=== PATIENT | female | born 1990 | race Caucasian/White ===

== ENCOUNTER 2017-12-29 12:01 | Inpatient (IN) | payer OTHER ==
[2017-12-29 13:11] LABS: BASO % 0.9 % (0.0-1.0); EOS # 0.2 10^3/uL (0.0-0.50); EOS % 3.6 % (0.0-3.0); HEMATOCRIT 40.1 % (36.0-47.0); HEMOGLOBIN 14.5 g/dl (12.0-15.5); IMMATURE GRANULOCYTE % 0.2 % (0-3.0); LYMPH # 1.8 10^3/uL (1.5-6.5); MEAN CORPUSCULAR HEMOGLOBIN 33.6 pg (27.0-33.0); MEAN CORPUSCULAR HGB CONC 36.2 g/dl (32.0-36.5); MEAN CORPUSCULAR VOLUME 92.8 fl (80.0-96.0); MONO # 0.5 10^3/uL (0.0-0.8); MONO % 9.6 % (0.0-5.0); NEUTROPHILS # 2.2 10^3/uL (1.8-7.7); NEUTROPHILS % 47.7 % (36.0-66.0); PLATELET COUNT, AUTOMATED 391 10^3/uL (150-450); RED BLOOD COUNT 4.32 10^6/uL (4.00-5.40); WHITE BLOOD COUNT 4.7 10^3/uL (4.0-10.0)
[2017-12-29 13:40] LABS: ALBUMIN 4.5 GM/DL (3.2-5.2); ALBUMIN/GLOBULIN RATIO 1.25 (1.00-1.93); ALKALINE PHOSPHATASE 59 U/L (45-117); ALT/SGPT 21 U/L (12-78); ANION GAP 18 MEQ/L (8-16); AST/SGOT 22 U/L (7-37); BILIRUBIN,DIRECT 0.3 MG/DL (0.0-0.2); BILIRUBIN,TOTAL 1.3 MG/DL (0.2-1.0); BLOOD UREA NITROGEN 19 MG/DL (7-18); CALCIUM LEVEL 9.9 MG/DL (8.5-10.1); CARBON DIOXIDE LEVEL 28 MEQ/L (21-32); CHLORIDE LEVEL 88 MEQ/L (98-107); CPK CREATINE PHOSPHOKINASE 104 U/L (26-192); CREATININE FOR GFR 1.11 MG/DL (0.55-1.30); GLOMERULAR FILTRATION RATE > 60.0 (>60); GLUCOSE, FASTING 89 MG/DL (70-100); MB/CK RELATIVE INDEX 1.44 (< OR =4); NT-PRO BNP 64 PG/ML (<125); POTASSIUM SERUM 2.3 MEQ/L (3.5-5.1); SODIUM LEVEL 134 MEQ/L (136-145); TOTAL PROTEIN 8.1 GM/DL (6.4-8.2); TROPONIN I < 0.02 NG/ML (< 0.10)
[2017-12-29] MEDS: KCL 10MEQ/100ML SWI (KRUN) 10 MEQ in APPROPRIATE DILUENT 1 EA IV ×4 (13:53→18:17)
[2017-12-29] MEDS: POTASSIUM CHLORIDE 10 MEQ SR TABLET PO ×2 (13:54→17:17)
[2017-12-29] MEDS: NS 1,000 ML IV ×3 (14:09→21:38)
[2017-12-29 15:51] LABS: CONTROL LINE HCG INT CTR LINE PRESENT; HCG, SERUM QUALITATIVE NEGATIVE (NEGATIVE)
[2017-12-29] MEDS: HEPARIN SOD (PORCINE) 5000 UNITS/ML VIAL SC ×2 (16:15→21:38)
[2017-12-29 18:24] LABS: OSMOLALITY SERUM 283 MOSM/KG (275-295)
[2017-12-29 18:33] LABS: ANION GAP 6 MEQ/L (8-16); BLOOD UREA NITROGEN 16 MG/DL (7-18); CALCIUM LEVEL 8.5 MG/DL (8.5-10.1); CARBON DIOXIDE LEVEL 33 MEQ/L (21-32); CHLORIDE LEVEL 94 MEQ/L (98-107); CREATININE FOR GFR 0.89 MG/DL (0.55-1.30); GLOMERULAR FILTRATION RATE > 60.0 (>60); GLUCOSE, FASTING 125 MG/DL (70-100); POTASSIUM SERUM 4.3 MEQ/L (3.5-5.1); SODIUM LEVEL 133 MEQ/L (136-145)
[2017-12-30 00:41] LABS: ANION GAP 5 MEQ/L (8-16); BLOOD UREA NITROGEN 16 MG/DL (7-18); CALCIUM LEVEL 7.8 MG/DL (8.5-10.1); CARBON DIOXIDE LEVEL 31 MEQ/L (21-32); CHLORIDE LEVEL 104 MEQ/L (98-107); CREATININE FOR GFR 0.99 MG/DL (0.55-1.30); GLOMERULAR FILTRATION RATE > 60.0 (>60); GLUCOSE, FASTING 92 MG/DL (70-100); POTASSIUM SERUM 3.8 MEQ/L (3.5-5.1); SODIUM LEVEL 140 MEQ/L (136-145)
[2017-12-30] MEDS: NS 1,000 ML IV (01:35)
[2017-12-30 06:00] LABS: MEAN CORPUSCULAR HEMOGLOBIN 33.4 pg (27.0-33.0); MEAN CORPUSCULAR HGB CONC 33.8 g/dl (32.0-36.5); RED BLOOD COUNT 2.93 10^6/uL (4.00-5.40); RED CELL DISTRIBUTION WIDTH 12.7 % (11.5-14.5); WHITE BLOOD COUNT 3.2 10^3/uL (4.0-10.0)
[2017-12-30 06:14] LABS: HEMOGLOBIN 9.8 g/dl (12.0-15.5); PLATELET COUNT, AUTOMATED 213 10^3/uL (150-450)
[2017-12-30 06:28] LABS: ALBUMIN 2.6 GM/DL (3.2-5.2); ALBUMIN/GLOBULIN RATIO 1.04 (1.00-1.93); ALKALINE PHOSPHATASE 34 U/L (45-117); ALT/SGPT 16 U/L (12-78); ANION GAP 7 MEQ/L (8-16); AST/SGOT 14 U/L (7-37); BILIRUBIN,DIRECT 0.3 MG/DL (0.0-0.2); BILIRUBIN,TOTAL 0.8 MG/DL (0.2-1.0); BLOOD UREA NITROGEN 14 MG/DL (7-18); CALCIUM LEVEL 7.3 MG/DL (8.5-10.1); CARBON DIOXIDE LEVEL 27 MEQ/L (21-32); CHLORIDE LEVEL 107 MEQ/L (98-107); GLOMERULAR FILTRATION RATE > 60.0 (>60); GLUCOSE, FASTING 92 MG/DL (70-100); MAGNESIUM LEVEL 1.7 MG/DL (1.8-2.4); POTASSIUM SERUM 3.3 MEQ/L (3.5-5.1); SODIUM LEVEL 141 MEQ/L (136-145); TOTAL PROTEIN 5.1 GM/DL (6.4-8.2)
[2017-12-30] MEDS: HEPARIN SOD (PORCINE) 5000 UNITS/ML VIAL SC ×3 (06:47→20:43)
[2017-12-30] MEDS: KCL 40MEQ in NS 1000ML 1,000 ML IV ×3 (07:54→22:23)
[2017-12-30] MEDS: MAG SULF 1GM/100ML (MAG RUN) 1 GM in APPROPRIATE DILUENT 1 EA IV (07:54)
[2017-12-30] MEDS: POTASSIUM CHLORIDE 10 MEQ SR TABLET PO (07:54)
[2017-12-30 08:17] LABS: LACTIC ACID SEPSIS PROTOCOL 0.6 MMOL/L (0.4-2.0)
[2017-12-30 08:20] LABS: APPEARANCE, URINE CLEAR (CLEAR); BACTERIA, URINE AUTO NEGATIVE (NEGATIVE); BILIRUBIN, URINE AUTO NEGATIVE (NEGATIVE); BLOOD, URINE BLOOD NEGATIVE (NEGATIVE); COLOR, URINE YELLOW (YELLOW); GLUCOSE, URINE (UA) AUTO NEGATIVE (NEGATIVE); KETONE, URINE AUTO NEGATIVE (NEGATIVE); LEUKOCYTE ESTERASE, URINE AUTO NEGATIVE (NEGATIVE); NITRITE, URINE AUTO NEGATIVE (NEGATIVE); PROTEIN, URINE AUTO NEGATIVE (NEGATIVE); RBC, URINE AUTO 1 /HPF (0-3); SPECIFIC GRAVITY URINE AUTO 1.005 (1.002-1.035); SQUAMOUS EPITHELIAL CELL UR AU 1 /HPF (0-6); UROBILINOGEN, URINE AUTO 0.2 mg/dL (0.0-2.0); WBC, URINE AUTO 1 /HPF (0-3)
[2017-12-30 08:22] LABS: CPK CREATINE PHOSPHOKINASE 66 U/L (26-192); MB/CK RELATIVE INDEX 2.42 (< OR =4); TROPONIN I 0.05 NG/ML (< 0.10)
[2017-12-30 08:30] LABS: ABG HCO3 22.8 MEQ/L (22.0-26.0); ABG O2 SATURATION 98.6 % (95.0-99.0); ABG PARTIAL PRESSURE CO2 35.1 mmHg (35.0-45.0); ABG PARTIAL PRESSURE O2 139.9 mmHg (75.0-100.0); ABG STANDARD HCO3 23.6 MEQ/L (22.0-26.0); ABG TOTAL CO2 23.9 MEQ/L (22.0-29.0); ABG pH (ARTERIAL) 7.431 UNITS (7.350-7.450)
[2017-12-30 08:34] LABS: AMPHETAMINES LEVEL URINE NEGATIVE (NEGATIVE); BARBITURATES URINE NEGATIVE (NEGATIVE); BENZODIAZEPINES URINE NEGATIVE (NEGATIVE); CANNABINOIDS URINE POSITIVE (NEGATIVE); COCAINE METABOLITE URINE NEGATIVE (NEGATIVE); METHADONE URINE NEGATIVE (NEGATIVE); OPIATES URINE NEGATIVE (NEGATIVE); PHENCYCLIDINE URINE NEGATIVE (NEGATIVE)
[2017-12-30 08:35] LABS: CHLORIDE,RANDOM URINE < 10 MEQ/L; CREATININE,RANDOM URINE 60.2 MG/DL; POTASSIUM RANDOM URINE 14.6 MEQ/L; SODIUM,RANDOM URINE 22 MEQ/L
[2017-12-30 08:48] LABS: OSMOLALITY SERUM 286 MOSM/KG (275-295)
[2017-12-30 08:52] LABS: OSMOLALITY URINE 199 MOSM/KG (500-800)
[2017-12-30 10:14] LABS: CORTISOL BASELINE 13.4 UG/DL (4.3-22.4)
[2017-12-30 12:45] LABS: ANION GAP 5 MEQ/L (8-16); BLOOD UREA NITROGEN 10 MG/DL (7-18); CALCIUM LEVEL 7.7 MG/DL (8.5-10.1); CARBON DIOXIDE LEVEL 30 MEQ/L (21-32); CHLORIDE LEVEL 108 MEQ/L (98-107); CPK CREATINE PHOSPHOKINASE 83 U/L (26-192); CREATININE FOR GFR 0.71 MG/DL (0.55-1.30); GLOMERULAR FILTRATION RATE > 60.0 (>60); GLUCOSE, FASTING 71 MG/DL (70-100); MAGNESIUM LEVEL 2.4 MG/DL (1.8-2.4); MB/CK RELATIVE INDEX 1.81 (< OR =4); POTASSIUM SERUM 4.3 MEQ/L (3.5-5.1); SODIUM LEVEL 143 MEQ/L (136-145); TROPONIN I 0.07 NG/ML (< 0.10)
[2017-12-30 13:48] LABS: PHOSPHORUS LEVEL 2.3 MG/DL (2.5-4.9)
[2017-12-30] MEDS: NEUTRA-PHOS 1.25 GM PACKET PO ×2 (15:10→20:40)
[2017-12-30 15:42] LABS: CPK CREATINE PHOSPHOKINASE 103 U/L (26-192); MB/CK RELATIVE INDEX 2.04 (< OR =4); TROPONIN I 0.06 NG/ML (< 0.10)
[2017-12-30 17:08] LABS: TOTAL VOLUME, URINE 1250 ML
[2017-12-30 17:11] LABS: POTASSIUM URINE 37.5 MEQ/L
[2017-12-30 17:17] LABS: POTASSIUM 24 HOUR URINE 46.9 MEQ/24HR (25-125)
[2017-12-30 18:35] LABS: CPK CREATINE PHOSPHOKINASE 84 U/L (26-192); MB/CK RELATIVE INDEX 1.67 (< OR =4); TROPONIN I 0.05 NG/ML (< 0.10)
[2017-12-31] MEDS: HEPARIN SOD (PORCINE) 5000 UNITS/ML VIAL SC ×2 (05:30→13:43)
[2017-12-31] MEDS: KCL 40MEQ in NS 1000ML 1,000 ML IV (05:30)
[2017-12-31] MEDS: NEUTRA-PHOS 1.25 GM PACKET PO ×2 (08:20→16:16)
[2017-12-31] MEDS ORDERED: SLF 3 ML SYR IV (09:00)
[2017-12-31 09:02] LABS: HEMATOCRIT 36.3 % (36.0-47.0); HEMOGLOBIN 11.7 g/dl (12.0-15.5); MEAN CORPUSCULAR HEMOGLOBIN 34.1 pg (27.0-33.0); MEAN CORPUSCULAR HGB CONC 32.2 g/dl (32.0-36.5); MEAN CORPUSCULAR VOLUME 105.8 fl (80.0-96.0); PLATELET COUNT, AUTOMATED 230 10^3/uL (150-450); RED BLOOD COUNT 3.43 10^6/uL (4.00-5.40); RED CELL DISTRIBUTION WIDTH 12.8 % (11.5-14.5); WHITE BLOOD COUNT 2.9 10^3/uL (4.0-10.0)
[2017-12-31 09:29] LABS: ALBUMIN 3.2 GM/DL (3.2-5.2); ALBUMIN/GLOBULIN RATIO 1.19 (1.00-1.93); ALKALINE PHOSPHATASE 41 U/L (45-117); ALT/SGPT 18 U/L (12-78); ANION GAP 3 MEQ/L (8-16); AST/SGOT 13 U/L (7-37); BILIRUBIN,DIRECT 0.2 MG/DL (0.0-0.2); BILIRUBIN,TOTAL 0.5 MG/DL (0.2-1.0); BLOOD UREA NITROGEN 4 MG/DL (7-18); CALCIUM LEVEL 8.4 MG/DL (8.5-10.1); CARBON DIOXIDE LEVEL 26 MEQ/L (21-32); CHLORIDE LEVEL 112 MEQ/L (98-107); CREATININE FOR GFR 0.64 MG/DL (0.55-1.30); GLOMERULAR FILTRATION RATE > 60.0 (>60); GLUCOSE, FASTING 80 MG/DL (70-100); MAGNESIUM LEVEL 2.1 MG/DL (1.8-2.4); PHOSPHORUS LEVEL 2.5 MG/DL (2.5-4.9); POTASSIUM SERUM 5.1 MEQ/L (3.5-5.1); SODIUM LEVEL 141 MEQ/L (136-145); TOTAL PROTEIN 5.9 GM/DL (6.4-8.2)
[2017-12-31] MEDS: SLF 3 ML SYR IV (13:43)
[2018-01-01] MEDS ORDERED: FLUCONAZOLE 50MG TABLET PO (09:00)
[2018-01-02 00:06] LABS: Lyme Disease IgG/IgM Antibodie <0.91 ISR (0.00-0.90); Lyme Disease IgM Ab Quantitati <0.80 index (0.00-0.79)
[2018-01-03 00:08] LABS: ALDOSTERONE 1.7 ng/dL (0.0-30.0); RENIN ACTIVITY 1.679 ng/mL/hr (0.167-5.380)
== END 2017-12-31 17:22 | disposition home or self-care (01) | DRG 641 ==
LOC: M ED 12:01 → M ED INP 14:44 → M PCU 15:52
DX: E87.6 Hypokalemia (principal); F41.9 Anxiety disorder, unspecified; F32.9 Major depressive disorder, single episode, unspecified; F43.10 Post-traumatic stress disorder, unspecified; I95.89 Other hypotension

== ENCOUNTER → 2018-04-07 | Outpatient (REF) | payer OTHER ==
[~2018-04-07] MED LIST: FLUC150T PO; K-TA10TA PO; MAGN400C PO; POTA1TAB14 PO; [UNRECOGNIZED DRUG - CODE] XX
[2018-04-07 19:26] LABS: AMORPHOUS SEDIMENT SMALL (NEGATIVE); APPEARANCE, URINE HAZY (CLEAR); BACTERIA, URINE AUTO NEGATIVE (NEGATIVE); BILIRUBIN, URINE AUTO NEGATIVE (NEGATIVE); BLOOD, URINE BLOOD NEGATIVE (NEGATIVE); COLOR, URINE YELLOW (YELLOW); GLUCOSE, URINE (UA) AUTO NEGATIVE (NEGATIVE); KETONE, URINE AUTO NEGATIVE (NEGATIVE); LEUKOCYTE ESTERASE, URINE AUTO TRACE (NEGATIVE); MUCUS, URINE SMALL (NEGATIVE); NITRITE, URINE AUTO NEGATIVE (NEGATIVE); PROTEIN, URINE AUTO 3+ mg/dL (NEGATIVE); RBC, URINE AUTO 1 /HPF (0-3); SPECIFIC GRAVITY URINE AUTO 1.019 (1.002-1.035); SQUAMOUS EPITHELIAL CELL UR AU 6 /HPF (0-6); UROBILINOGEN, URINE AUTO 0.2 mg/dL (0.0-2.0); WBC, URINE AUTO 2 /HPF (0-3)
== END ==
LOC: M LAB REF 16:45
PROVIDERS: ATTEND Physician Assistant
DX: N39.0 Urinary tract infection, site not specified (principal)

== ENCOUNTER → 2018-04-19 | Outpatient (REF) | payer OTHER ==
[2018-04-19 17:23] LABS: AMORPHOUS SEDIMENT SMALL (NEGATIVE); APPEARANCE, URINE TURBID (CLEAR); BACTERIA, URINE AUTO 2+ (NEGATIVE); BILIRUBIN, URINE AUTO NEGATIVE (NEGATIVE); BLOOD, URINE BLOOD NEGATIVE (NEGATIVE); CALCIUM OXALATE CRYSTALS LARGE; COLOR, URINE AMBER (YELLOW); GLUCOSE, URINE (UA) AUTO NEGATIVE (NEGATIVE); KETONE, URINE AUTO NEGATIVE (NEGATIVE); LEUKOCYTE ESTERASE, URINE AUTO 3+ (NEGATIVE); MUCUS, URINE MODERATE (NEGATIVE); NITRITE, URINE AUTO NEGATIVE (NEGATIVE); PROTEIN, URINE AUTO 3+ mg/dL (NEGATIVE); RBC, URINE AUTO 20 /HPF (0-3); SQUAMOUS EPITHELIAL CELL UR AU 65 /HPF (0-6); TRANSITIONAL EPITHELIAL AUTO <1 /HPF; UROBILINOGEN, URINE AUTO 0.2 mg/dL (0.0-2.0); WBC, URINE AUTO 93 /HPF (0-3)
== END ==
LOC: M LAB REF 16:18
PROVIDERS: ATTEND Physician Assistant Medical
DX: N39.0 Urinary tract infection, site not specified (principal)

== ENCOUNTER 2018-07-31 10:59 | Emergency (ER) | payer OTHER ==
[2018-07-31] MEDS ORDERED: LAMO100T (11:17)
[2018-07-31] MEDS ORDERED: QUET1TAB9 (11:17)
[2018-07-31] MEDS ORDERED: ALPR0.5T3 (11:17)
[2018-07-31] MEDS ORDERED: KETOROLAC TROMETHAMINE 10 MG TAB PO ONE (11:30)
[2018-07-31 11:44] LABS: BASO # 0.1 10^3/uL (0.0-0.2); EOS # 0.2 10^3/uL (0.0-0.50); EOS % 2.6 % (0.0-3.0); HEMATOCRIT 37.1 % (36.0-47.0); HEMOGLOBIN 12.8 g/dl (12.0-15.5); LYMPH # 1.5 10^3/uL (1.5-6.5); LYMPH % 19.9 % (24.0-44.0); MEAN CORPUSCULAR HGB CONC 34.5 g/dl (32.0-36.5); MEAN CORPUSCULAR VOLUME 95.6 fl (80.0-96.0); MONO # 0.7 10^3/uL (0.0-0.8); MONO % 9.3 % (0.0-5.0); NEUTROPHILS # 4.9 10^3/uL (1.8-7.7); NEUTROPHILS % 66.9 % (36.0-66.0); PLATELET COUNT, AUTOMATED 381 10^3/uL (150-450); RED BLOOD COUNT 3.88 10^6/uL (4.00-5.40); WHITE BLOOD COUNT 7.4 10^3/uL (4.0-10.0)
[2018-07-31 12:07] LABS: BLOOD UREA NITROGEN 9 MG/DL (7-18); CALCIUM LEVEL 8.5 MG/DL (8.5-10.1); CARBON DIOXIDE LEVEL 32 MEQ/L (21-32); CHLORIDE LEVEL 104 MEQ/L (98-107); CREATININE FOR GFR 0.84 MG/DL (0.55-1.30); GLOMERULAR FILTRATION RATE > 60.0 (>60); GLUCOSE, FASTING 112 MG/DL (70-100); POTASSIUM SERUM 3.4 MEQ/L (3.5-5.1); SODIUM LEVEL 142 MEQ/L (136-145)
[2018-07-31] MEDS ORDERED: LIDOCAINE 1% MDV 20ML VIAL SC ONE (13:15)
[2018-07-31] MEDS ORDERED: ONDANSETRON 4 MG ORAL DISINTEGRATING TAB (Q0162 PER 1MG) PO ONE (14:15)
[2018-07-31 14:40] VITALS: BP 110/61
[2018-07-31 14:46] LABS: CHLAMYDIA DNA AMPLIFICATION NEGATIVE (NEGATIVE); GC DNA AMPLIFICATION NEGATIVE (NEGATIVE)
== END 2018-07-31 14:42 | disposition home or self-care (01) ==
LOC: EDBD 10:59 → M ED 10:59
DX: S31.41XA Laceration without foreign body of vagina and vulva, initial encounter (principal); Z72.89 Other problems related to lifestyle; X58.XXXA Exposure to other specified factors, initial encounter; Y92.89 Other specified places as the place of occurrence of the external cause; N39.0 Urinary tract infection, site not specified; Z87.820 Personal history of traumatic brain injury; M54.9 Dorsalgia, unspecified; F41.9 Anxiety disorder, unspecified; J45.909 Unspecified asthma, uncomplicated; F31.9 Bipolar disorder, unspecified; G47.00 Insomnia, unspecified; Z88.0 Allergy status to penicillin; Z88.1 Allergy status to other antibiotic agents; Z88.8 Allergy status to other drugs, medicaments and biological substances; Z79.899 Other long term (current) drug therapy
CPT/HCPCS: 12001; 36415; 80048; 81001; 84702; 85025; 87088; 87186; 87210; 87491; 87591; 99284; Q0162

== ENCOUNTER 2018-09-03 01:06 | Inpatient (IN) | payer OTHER ==
[~2018-09-03] VITALS: BP 122/71; Ht 165.1 cm; Wt 62.1 kg
[~2018-09-03 01:06] MED LIST changes: +ALPR0.5T3; +LAMO100T; +QUET1TAB9
[2018-09-03] MEDS: fentaNYL 100 MCG/2 ML INJECTION (J3010) IV PRN ×4 (01:26→06:42)
[2018-09-03] MEDS ORDERED: NS 1,000 ML IV ONE (01:30)
[2018-09-03] MEDS ORDERED: ONDANSETRON 4MG/2ML VIAL (J2405) IV ONE (01:30)
[2018-09-03] MEDS ORDERED: ISOVUE-370 76% 100ML VIAL (Q9967) As Ordered ONE (01:30)
[2018-09-03 01:40] LABS: BASO # 0.1 10^3/uL (0.0-0.2); BASO % 1.2 % (0.0-1.0); EOS # 0.3 10^3/uL (0.0-0.50); EOS % 4.4 % (0.0-3.0); HEMATOCRIT 30.8 % (36.0-47.0); HEMOGLOBIN 10.2 g/dl (12.0-15.5); LYMPH # 1.8 10^3/uL (1.5-6.5); LYMPH % 31.3 % (24.0-44.0); MEAN CORPUSCULAR HEMOGLOBIN 31.3 pg (27.0-33.0); MEAN CORPUSCULAR HGB CONC 33.1 g/dl (32.0-36.5); MEAN CORPUSCULAR VOLUME 94.5 fl (80.0-96.0); MONO # 0.5 10^3/uL (0.0-0.8); MONO % 9.1 % (0.0-5.0); NEUTROPHILS # 3.1 10^3/uL (1.8-7.7); NEUTROPHILS % 53.5 % (36.0-66.0); PLATELET COUNT, AUTOMATED 357 10^3/uL (150-450); RED BLOOD COUNT 3.26 10^6/uL (4.00-5.40); WHITE BLOOD COUNT 5.7 10^3/uL (4.0-10.0)
[2018-09-03 01:50] LABS: INR 1.12; PROTHROMBIN TIME 14.1 SECONDS (11.8-14.0)
[2018-09-03] MEDS ORDERED: MORPHINE 4 MG/ML 1ML VIAL/SYRINGE (J2270) As Ordered ONE (01:50)
[2018-09-03] MEDS: MORPHINE 4 MG/ML 1ML VIAL/SYRINGE (J2270) IV PRN ×8 (01:57→23:01)
[2018-09-03 02:08] LABS: ALBUMIN 3.2 GM/DL (3.2-5.2); ALT/SGPT 28 U/L (12-78); AMYLASE 109 U/L (25-115); BILIRUBIN,DIRECT 0.1 MG/DL (0.0-0.2); BILIRUBIN,TOTAL 0.3 MG/DL (0.2-1.0); BLOOD UREA NITROGEN 5 MG/DL (7-18); CALCIUM LEVEL 7.7 MG/DL (8.5-10.1); CARBON DIOXIDE LEVEL 26 MEQ/L (21-32); CHLORIDE LEVEL 104 MEQ/L (98-107); CK-MB VALUE MASS 2.2 NG/ML (<3.6); CPK CREATINE PHOSPHOKINASE 116 U/L (26-192); CREATININE FOR GFR 0.81 MG/DL (0.55-1.30); ETHYL ALCOHOL (ETHANOL) 0.022 % (0.000-0.010); GLOMERULAR FILTRATION RATE > 60.0 (>60); GLUCOSE, FASTING 93 MG/DL (70-100); LIPASE 261 U/L (73-393); POTASSIUM SERUM 3.8 MEQ/L (3.5-5.1); SODIUM LEVEL 140 MEQ/L (136-145); TOTAL PROTEIN 6.3 GM/DL (6.4-8.2); TROPONIN I < 0.02 NG/ML (< 0.10)
--- NOTE | 2018-09-03 02:42 | REPVR ---
EXAM: CT Cervical Spine Without Contrast EXAM DATE/TIME: 09/03/2018 1:17 AM CLINICAL HISTORY: 28 years old, female; Neck pain; Additional info: Trauma TECHNIQUE: Imaging protocol: Axial computed tomography images of the cervical spine without contrast. Coronal and sagittal reformatted images were created and reviewed. Radiation optimization: All CT scans at this facility use at least one of these dose optimization techniques: automated exposure control; mA and/or kV adjustment per patient size (includes targeted exams where dose is matched to clinical indication); or iterative reconstruction. COMPARISON: No relevant prior studies available. FINDINGS: Vertebrae: No acute fracture. Normal alignment. Discs/Spinal canal/Neural foramina: No spinal stenosis. No neural foraminal narrowing. Soft tissues: Unremarkable. Lungs: Lung apices are normal. IMPRESSION: No acute findings. Electronically signed by: Niya De La O On 09/03/2018 02:41:28 AM
--- NOTE | 2018-09-03 02:43 | REPVR ---
EXAM: CT Head Without Contrast EXAM DATE/TIME: 09/03/2018 1:35 AM CLINICAL HISTORY: 28 years old, female; Injury or trauma; Fall; Initial encounter; Concussion / head injury TECHNIQUE: Imaging protocol: Axial computed tomography images of the head without contrast. Radiation optimization: All CT scans at this facility use at least one of these dose optimization techniques: automated exposure control; mA and/or kV adjustment per patient size (includes targeted exams where dose is matched to clinical indication); or iterative reconstruction. COMPARISON: No relevant prior studies available. FINDINGS: Brain: Normal. No hemorrhage. Unremarkable white matter. No mass effect. Ventricles: Normal. No ventriculomegaly. Bones/joints: Unremarkable. No acute fracture. Sinuses: Visualized sinuses are unremarkable. No fluid levels. Mastoid air cells: Visualized mastoid air cells are well aerated. No mastoid effusion. Soft tissues: Mild right frontal soft tissue swelling. IMPRESSION: No intracranial abnormality. Electronically signed by: Niya De La O On 09/03/2018 02:43:14 AM
--- NOTE | 2018-09-03 02:55 | REPVR ---
EXAM: CT Abdomen and Pelvis With Contrast EXAM DATE/TIME: 09/03/2018 1:17 AM CLINICAL HISTORY: 28 years old, female; Abdominal pain; Generalized; Additional info: Trauma TECHNIQUE: Imaging protocol: Axial computed tomography images of the abdomen and pelvis with intravenous contrast. Coronal and sagittal reformatted images were created and reviewed. Radiation optimization: All CT scans at this facility use at least one of these dose optimization techniques: automated exposure control; mA and/or kV adjustment per patient size (includes targeted exams where dose is matched to clinical indication); or iterative reconstruction. Contrast material: ISO; Contrast volume: 100 ml; Contrast route: AC; COMPARISON: No relevant prior studies available. FINDINGS: Liver: Liver is enlarged. Gallbladder and bile ducts: Multiple tiny cholesterol and calcified gallstones. Pancreas: Normal. No ductal dilation. Spleen: Normal. No splenomegaly. Adrenals: Normal. No mass. Kidneys and ureters: Normal. No hydronephrosis. Stomach and bowel: Non distention versus mild thickening of the colon. No obstructing. No surrounding infiltrative changes. Small bowel is unremarkable. Appendix: Normal appendix. Intraperitoneal space: Normal. No free air. No significant fluid collection. Vasculature: Normal. No abdominal aortic aneurysm. Lymph nodes: Normal. No enlarged lymph nodes. Bladder: Unremarkable as visualized. Reproductive: Unremarkable as visualized. Bones/joints: No acute fracture. No dislocation. Soft tissues: Unremarkable. IMPRESSION: Multiple tiny cholesterol and calcified gallstones. Non distention versus mild thickening of the colon. No obstructing. Electronically signed by: Niya De La O On 09/03/2018 02:54:22 AM
--- NOTE | 2018-09-03 03:04 | REPVR ---
EXAM: CT Maxillofacial Without Contrast EXAM DATE/TIME: 09/03/2018 1:17 AM CLINICAL HISTORY: 28 years old, female; Face pain; Additional info: Trauma TECHNIQUE: Imaging protocol: Axial computed tomography images of the face without intravenous contrast. Coronal and sagittal reformatted images were created and reviewed. Radiation optimization: All CT scans at this facility use at least one of these dose optimization techniques: automated exposure control; mA and/or kV adjustment per patient size (includes targeted exams where dose is matched to clinical indication); or iterative reconstruction. COMPARISON: No relevant prior studies available. FINDINGS: Orbits: No acute intraorbital abnormality. Globes are unremarkable. Sinuses: Normal. No air-fluid levels. Bones/joints: No acute fracture. Soft tissues: Mild right frontal soft tissue swelling. IMPRESSION: No fracture or dislocation. Electronically signed by: Niya De La O On 09/03/2018 03:04:03 AM
--- NOTE | 2018-09-03 03:10 | REPVR ---
EXAM: CT Chest With Contrast EXAM DATE/TIME: 09/03/2018 1:17 AM CLINICAL HISTORY: 28 years old, female; Chest pain; Type not specified; Additional info: Trauma TECHNIQUE: Imaging protocol: Axial computed tomography images of the chest with intravenous contrast. Coronal and sagittal reformatted images were created and reviewed. Radiation optimization: All CT scans at this facility use at least one of these dose optimization techniques: automated exposure control; mA and/or kV adjustment per patient size (includes targeted exams where dose is matched to clinical indication); or iterative reconstruction. Contrast material: ISO; Contrast volume: 100 ml; Contrast route: AC; COMPARISON: CR Chest, 2 view PA, Lat 12/29/2017 1:38 PM FINDINGS: Lungs: Mild bibasilar dependent edema in the visualized levels. No focal consolidation. Pleural space: Unremarkable. No pneumothorax. No pleural effusion. Heart: Unremarkable. No cardiomegaly. No pericardial effusion. Aorta: Unremarkable. No aortic aneurysm. Lymph nodes: Unremarkable. No enlarged lymph nodes. Bones/joints: Nondisplaced fracture of the posterior right third rib. Soft tissues: Unremarkable. IMPRESSION: No acute finding. Electronically signed by: Niya De La O On 09/03/2018 03:09:59 AM
[2018-09-03 05:43] LABS: AMPHETAMINES LEVEL URINE NEGATIVE (NEGATIVE); BARBITURATES URINE NEGATIVE (NEGATIVE); BENZODIAZEPINES URINE POSITIVE (NEGATIVE); CANNABINOIDS URINE NEGATIVE (NEGATIVE); COCAINE METABOLITE URINE NEGATIVE (NEGATIVE); METHADONE URINE NEGATIVE (NEGATIVE); OPIATES URINE POSITIVE (NEGATIVE); PHENCYCLIDINE URINE NEGATIVE (NEGATIVE)
[2018-09-03] MEDS ORDERED: ALPR0.5T3 PO (06:22)
[2018-09-03] MEDS ORDERED: BUSP10TA PO (06:22)
[2018-09-03] MEDS ORDERED: LAMO100T PO (06:22)
[2018-09-03] MEDS ORDERED: QUET1TAB9 PO (06:22)
[2018-09-03] MEDS ORDERED: LIDOCAINE 2% MDV 20 ML VIAL SC ONE (06:45)
[2018-09-03] MEDS ORDERED: HYDROMORPHONE HCL 0.5 MG/ 0.5 ML SYRINGE (J1170 PER 1) As Ordered ONE (06:46)
[2018-09-03] MEDS: HYDROMORPHONE HCL 0.5 MG/ 0.5 ML SYRINGE (J1170 PER 1) IV PRN ×2 (06:53→08:45)
[2018-09-03] MEDS ORDERED: MORPHINE 10 MG/ML 1ML VIAL (J2270) As Ordered ONE (07:39)
[2018-09-03] MEDS ORDERED: ACETAMINOPHEN TAB 650MG DOSE (2X325MG) PO PRN (07:45)
[2018-09-03] MEDS ORDERED: MORPHINE 10 MG/ML 1ML VIAL (J2270) IM ONE (07:45)
--- NOTE | 2018-09-03 08:16 | HPE ---
DATE OF ADMISSION: 09/03/2018 ATTENDING PHYSICIAN: Dr. Warren Mireles CONSULTANTS: Orthopaedics. CHIEF COMPLAINT: Fell at home with bilateral arm pain. HISTORY OF PRESENT ILLNESS: The patient is a 28-year-old white female without significant past medical history who presented to the emergency room for the fall at home. She states she fell. She out of a second floor down to the first floor with 12 stairs. She injured her bilateral hand. In the emergency room, she had x-rays done which demonstrated she has bilateral wrist fractures. Orthopaedics was consulted in the emergency room and tried to perform external reduction and fixation and also she may need surgery. Medicine service was called for admission. REVIEW OF SYSTEMS: Denies fever. No chills. No headache. No burry vision. No syncopal episode and no chest pain. No abdominal pain. No tingling or numbness, weakness in arms or extremities. She does have pain in her bilateral hands as well as right shoulder. All other systems reviewed and negative. PAST MEDICAL HISTORY: Depression and anxiety. PAST SURGICAL HISTORY: Left ankle reconstruction surgery. MEDICATIONS: She is not taking routine medications. ALLERGIES: She is allergic to PENICILLIN, ERYTHROMYCIN, TRAZODONE. SOCIAL HISTORY: Denies tobacco use. Denies alcohol abuse. No drug abuse. She is FULL CODE. FAMILY HISTORY: Reviewed. No family history of coronary artery disease or diabetes. PHYSICAL EXAMINATION: VITALS: Temperature 97, heart rate 55, respiratory rate 20, blood pressure 110/65, oxygen saturation 100% in room air. GENERAL: She is awake, alert, oriented times three. She is in pain. HEENT: She has some contusion on her right face and jaw area. Ear, nose, mouth, throat normal. Eyes: Normal vision. Pupils equal, round, and reactive to light. No jaundice. Extraocular muscles intact. NECK: No jugular venous distention (JVD). No bruits. No tenderness. LUNGS: Clear. No wheezing or crackles. HEART: S1, S2, regular. No murmur. ABDOMEN: Soft, bowel sounds positive. Nontender. EXTREMITIES: No extremity edema in bilateral lower extremities. SKIN: No rash. She has swollen distorted left wrist and her right wrist was wrapped in a cast. She also had some contusions on her right shoulder. NEURO: Nonfocal. PSYCHOLOGICAL: No acute psychosis. DIAGNOSTIC LABS AND STUDIES INCLUDE THE FOLLOW: CBC and differential 5.7, hemoglobin and hematocrit 10.2/30.8, platelets 357. Sodium 140, potassium 0.8, chloride 104, bicarbonate 26, BUN 5, creatinine 0.8, glucose 93. X-rays reviewed and demonstrated bilateral radial fracture. IMPRESSION: 1. Bilateral wrist fracture due to mechanical fall. PLAN: Patient will be admitted to the medical/surgical floor. Orthopaedics consulted and will make further recommendations. We will control the pain. JOSEMANUEL
--- NOTE | 2018-09-03 08:54 | REP ---
C-ARM VIEWS LEFT WRIST: Multiple C-arm views left wrist performed during reduction and casting of a fracture of distal radius and ulna. The structures are well aligned. The last two images show an overlying cast. 47 seconds of fluoroscopy time utilized. Electronically Signed by Derek Domingo MD 09/04/2018 10:36 A
--- NOTE | 2018-09-03 08:55 | REP ---
Oral chest x-ray: Single view. History: Trauma. Findings: The lungs are symmetrically aerated and clear. Pleural angles are sharp. Heart size is normal. Pulmonary vasculature is not increased. No significant bony abnormality is seen. Impression: No active disease. Electronically Signed by Riley Estrada MD 09/03/2018 08:46 A
--- NOTE | 2018-09-03 09:04 | REP ---
BILATERAL SHOULDERS: Three views of bilateral shoulders performed. There is no acute fracture, dislocation, or intrinsic bone disease. IMPRESSION: No acute fracture or dislocation. Electronically Signed by Derek Domingo MD 09/04/2018 10:36 A
--- NOTE | 2018-09-03 09:09 | REP ---
BILATERAL WRIST SERIES: AP and lateral views of both wrists performed following casting. On the left, a comminuted intra-articular fracture of the distal radius is well aligned. On the right, a nondisplaced intra-articular fracture of the distal radius is well aligned. Overlying cast obscures underlying osseous detail. Electronically Signed by Derek Domingo MD 09/04/2018 10:37 A
--- NOTE | 2018-09-03 09:10 | REP ---
BILATERAL FOREARM: FOUR VIEWS. HISTORY: Deformity after a fall. FINDINGS: AP and lateral views of each forearm demonstrate bilateral distal radial metaphyseal fractures. Both distal radial metaphyseal fractures show impaction and apex volar angulation, left more so than right. There is associated soft-tissue swelling. No ulnar fracture is appreciated on either side. There is an intravenous cannula projecting in the antecubital fossa soft tissues on the right. Another intravenous cannula is seen in the left proximal forearm soft tissues. No other fractures seen. IMPRESSION: Bilateral impacted distal radial fractures. Electronically Signed by Riley Estrada MD 09/03/2018 12:26 P
--- NOTE | 2018-09-03 09:31 | REP ---
BILATERAL WRIST SERIES: Three portable views of each wrist performed. On the left there is a comminuted intra-articular fracture of the distal radius with a mild dorsal angulation. The fracture is impacted. There is also mild dorsal displacement of fracture fragments. On the right there is a nondisplaced intra-articular fracture of the distal radius. No other fracture or dislocation is seen bilaterally. Electronically Signed by Derek Domingo MD 09/04/2018 10:40 A
[2018-09-03 13:30] VITALS: BP 118/64
[2018-09-03] MEDS: PERCOCET 5MG/325MG TAB PO PRN ×3 (13:47→21:10)
--- NOTE | 2018-09-03 20:23 | ECGEPIP ---
[facility] - ED Test Date: 2018-09-03 Pat Name: RASHI HA Department: Room: - Gender: Female [employer]: GENE : 1990 Requested By: KESHIA Cox Order Number: [id number] Reading MD: Hamilton Cho Measurements Intervals [place] Rate: 63 P: PA: 116 QRS: 46 QRSD: 99 T: 54 QT: 423 QTc: 433 Interpretive Statements SINUS RHYTHM WITH SINUS ARRHYTHMIA WITH SHORT PA INTERVAL 12/30/17 RATE INCREASED IMPROVED ANTERIOR T WAVE ABNORMALITY Electronically Signed on 09-03-2018 20:23:06 EDT by Hamilton Cho
[2018-09-03] MEDS: QUEtiapine FUMARATE 200 MG TAB PO SCH (21:00)
[2018-09-03] MEDS: lamoTRIgine 100MG TAB PO SCH (21:09)
[2018-09-03] MEDS: busPIRone 10 MG TAB PO SCH (21:09)
[2018-09-03] MEDS: ALPRAZolam 0.5 MG TAB PO PRN (21:09)
[2018-09-03 22:52] VITALS: BP 133/80
--- NOTE | 2018-09-03 23:16 | IPN ---
DATE: 09/03/2018 Cyndie was seen in the emergency department after a fall down some stairs. She was found to have bilateral wrist fractures, the left wrist being displaced. She was seen by orthopedic services and placed in bilateral casts, a short-arm on the right and a long-arm on the left status post left distal radius reduction. Our service was again contacted as the patient was complaining of some increased pain in the elbow and intermittent numbness and some numbness and tingling in the fingers. On physical exam, I examined the cast. It appeared well fitting. There was no evidence of cast irritation or skin breakdown. She was able to wiggle all of her exposed fingers. They had brisk capillary refill and intact sensation. There was normal coloring, and I could fit a finger in the upper proximal and distal aspects of the cast. ASSESSMENT/PLAN: I did discuss with the patient that as a result of her having a reduction of this fracture, I would be willing to take her out of this cast and place her into another long-arm cast as this would be the best thing to keep her fracture from falling off or needing surgery. She did report that her numbness in her hand was intermittent, came and went and when it go numb, she would have to move her arm and this seemed to fix it. She did report numbness in the entire hand, but again states that this is positional in nature. She denied having her cast removed, stating that it is the static positioning of the elbow that is bothering her the most. I offered her, again, a short-arm splint, which she denied today. I discussed this with her nurse.
[2018-09-04] MEDS: MORPHINE 4 MG/ML 1ML VIAL/SYRINGE (J2270) IV PRN ×6 (01:33→22:24)
[2018-09-04 06:43] LABS: HEMATOCRIT 31.2 % (36.0-47.0); HEMOGLOBIN 10.1 g/dl (12.0-15.5); MEAN CORPUSCULAR HEMOGLOBIN 30.6 pg (27.0-33.0); MEAN CORPUSCULAR HGB CONC 32.4 g/dl (32.0-36.5); MEAN CORPUSCULAR VOLUME 94.5 fl (80.0-96.0); PLATELET COUNT, AUTOMATED 279 10^3/uL (150-450); WHITE BLOOD COUNT 6.6 10^3/uL (4.0-10.0)
[2018-09-04 07:04] LABS: BLOOD UREA NITROGEN 5 MG/DL (7-18); CALCIUM LEVEL 8.4 MG/DL (8.5-10.1); CARBON DIOXIDE LEVEL 27 MEQ/L (21-32); CHLORIDE LEVEL 105 MEQ/L (98-107); CREATININE FOR GFR 0.82 MG/DL (0.55-1.30); GLOMERULAR FILTRATION RATE > 60.0 (>60); GLUCOSE, FASTING 84 MG/DL (70-100); POTASSIUM SERUM 3.5 MEQ/L (3.5-5.1); SODIUM LEVEL 138 MEQ/L (136-145)
[2018-09-04 07:15] VITALS: BP 135/78
--- NOTE | 2018-09-04 09:03 | IPNPDOC ---
Date Seen The patient was seen on 09/04/18. Progress Note SUBJECTIVE: 28 Y female with history of depression and bipolar disorder fall at home and found to have bilateral wrists fracture Ortho consulted and she underwent for bilateral wrist external reduction with casts no events overnight she states she has intermitted severe pain and needs IV morphine Review of systems no fever no chills] no chest pain no abdominal pain OBJECTIVE PHYSICAL EXAMINATION: VITAL SIGNS: Please see below. GENERAL: AA Ox3, not in distress HEENT: +contusion in right face and right shoulder with ecchymosis in eyes left chin and left shoulder CARDIOVASCULAR: s1s2 regular no murmur RESPIRATORY: clear no rales ABDOMINAL:soft bs positive, no tender EXTREMITIES: bilateral arm/wrists in casts, she moves her fingers freely NEUROLOGICAL: non focal PSYCHOLOGICAL: no psychosis LABORATORY DATA, IMAGING STUDIES, MICROBIOLOGY: Please see below. DVT prophylaxis ordered?: no ASSESSMENT AND PLAN: 1. Bilateral wrist fracture, s/p day #1 external reduction and casting pain control ortho follows 2. Bipolar disorder, stable continue her home medicines 3. DISPOSITION: she states she lives alone and her is in [facility] and will come back on September 08 and requests to be discharged until then; will discuss with employment evaluator/case manager . VS, I&O, 24H, Fishbone Vital Signs/I&O Vital Signs Date Time Temp Pulse Resp B/P (MAP) Pulse Ox O2 Delivery O2 Flow Rate FiO2 09/04/18 07:15 96.9 81 16 135/78 (97) 100 09/03/18 13:13 Room Air I&O- Last 24 Hours up to 6 AM 09/04/18 06:00 Intake Total 1680 ml Balance 1680 ml Laboratory Data 24H LABS Laboratory Tests 2 09/04/18 06:15: Nucleated Red Blood Cells % (auto) 0.0, Anion Gap 6L, Glomerular Filtration Rate > 60.0, Blood Urea Nitrogen 5L, Creatinine 0.82, Sodium Level 138, Potassium Level 3.5, Chloride Level 105, Carbon Dioxide Level 27, Calcium Level 8.4L CBC/BMP Laboratory Tests 09/04/18 06:15 Red Blood Count 3.30 L, Mean Corpuscular Volume 94.5, Mean Corpuscular Hemoglobin 30.6, Mean Corpuscular Hemoglobin Concent 32.4, Red Cell Distribution Width 12.9, Calcium Level 8.4 L MESHA CERON MD Sep 04, 2018 09:03
[2018-09-04] MEDS: busPIRone 10 MG TAB PO SCH ×3 (09:51→22:22)
[2018-09-04 14:00] VITALS: BP 141/81
[2018-09-04] MEDS: LIDOCAINE 4% CREAM 5GM (LMX4) TOP PRN ×2 (18:57→22:25)
[2018-09-04] MEDS: QUEtiapine FUMARATE 200 MG TAB PO SCH (21:00)
[2018-09-04] MEDS ORDERED: **NOTE PATIENT COMMENT** MISC XX SCH (21:00)
[2018-09-04 22:00] VITALS: BP 116/63
[2018-09-04] MEDS: lamoTRIgine 100MG TAB PO SCH (22:22)
[2018-09-04] MEDS: PERCOCET 5MG/325MG TAB PO PRN (22:23)
[2018-09-04] MEDS: ALPRAZolam 0.5 MG TAB PO PRN (22:24)
[2018-09-05] MEDS: PERCOCET 5MG/325MG TAB PO PRN ×4 (01:55→16:31)
[2018-09-05 06:00] VITALS: BP 115/50
[2018-09-05] MEDS ORDERED: LIDOCAINE 5% (LIDODERM) PATCH TD SCH (09:00)
--- NOTE | 2018-09-05 11:01 | IPNPDOC ---
Date Seen The patient was seen on 09/05/18. Progress Note SUBJECTIVE: 28 Y female with history of depression and bipolar disorder fall at home and found to have bilateral wrists fracture Ortho consulted and she underwent for bilateral wrist external reduction with casts on 09/03 no events overnight Review of systems no fever no chills] no chest pain no abdominal pain +severe pain in both wrists OBJECTIVE PHYSICAL EXAMINATION: VITAL SIGNS: Please see below. GENERAL: AA Ox3, not in distress HEENT: +contusion in right face and right shoulder with ecchymosis in eyes left chin and left shoulder CARDIOVASCULAR: s1s2 regular no murmur RESPIRATORY: clear no rales ABDOMINAL:soft bs positive, no tender EXTREMITIES: bilateral arm/wrists in casts, she moves her fingers freely NEUROLOGICAL: non focal PSYCHOLOGICAL: no psychosis LABORATORY DATA, IMAGING STUDIES, MICROBIOLOGY: Please see below. DVT prophylaxis ordered?: no ASSESSMENT AND PLAN: 1. Bilateral wrist fracture, s/p day #2 external reduction and casting she c/o 10 out of 10 pain in her wrists but she looks comfortable and definitely showed drug-seeker behavior ortho follows 2. Bipolar disorder, stable continue her home medicines 3. DISPOSITION: she states she lives alone and her is in [facility] and will come back on September 08 and requests to be discharged until then; will discuss with rehabilitation case coordinator . VS, I&O, 24H, Fishbone Vital Signs/I&O Vital Signs Date Time Temp Pulse Resp B/P (MAP) Pulse Ox O2 Delivery O2 Flow Rate FiO2 09/05/18 07:27 18 09/05/18 06:00 97.8 62 115/50 (71) 99 09/03/18 13:13 Room Air I&O- Last 24 Hours up to 6 AM 09/05/18 06:00 Intake Total 3550 ml Output Total 0 ml Balance 3550 ml MESHA CERON MD Sep 05, 2018 11:01
[2018-09-05] MEDS: busPIRone 10 MG TAB PO SCH ×3 (11:52→20:40)
[2018-09-05] MEDS: ALPRAZolam 0.5 MG TAB PO PRN (11:52)
[2018-09-05] MEDS: MORPHINE 15 MG SA TAB PO SCH ×2 (11:53→20:41)
[2018-09-05 14:00] VITALS: BP 114/58
[2018-09-05 15:10] VITALS: BP 114/58
[2018-09-05 20:30] VITALS: BP 136/87
[2018-09-05] MEDS: lamoTRIgine 100MG TAB PO SCH (20:40)
[2018-09-05] MEDS: QUEtiapine FUMARATE 200 MG TAB PO SCH (20:42)
[2018-09-06 06:00] VITALS: BP 122/71
[2018-09-06] MEDS: LIDOCAINE 4% CREAM 5GM (LMX4) TOP PRN ×2 (06:09→11:57)
[2018-09-06] MEDS: PERCOCET 5MG/325MG TAB PO PRN ×4 (06:10→22:22)
--- NOTE | 2018-09-06 08:57 | IPN ---
DATE: 09/06/2018 Cyndie is seen on [address]. She has bilateral wrist fractures. She has been casted. Edema in her hands has improved. No chest pain. No shortness of breath. PHYSICAL EXAMINATION: VITAL SIGNS: Stable. LUNGS: Clear. HEART: Regular rhythm. ABDOMEN: Soft, nontender. Moves both hands well. No significant edema. IMPRESSION: 1. Bilateral wrist fractures. Pain control appears adequate today. 2. Bipolar disorder with anxiety. Stable on current regimen. 3. Deep venous thrombosis (DVT) prophylaxis. She is ambulating well so does not have chemical DVT prophylaxis ordered. She has multiple ecchymoses on the face from falls and would probably be better served by aggressive ambulation.
[2018-09-06] MEDS: busPIRone 10 MG TAB PO SCH ×3 (09:09→20:57)
[2018-09-06] MEDS: MORPHINE 15 MG SA TAB PO SCH ×2 (09:09→20:57)
--- NOTE | 2018-09-06 10:56 | REP ---
CT left wrist without contrast: History: Check position. Comparison radiographs are from September 03, 2018. Findings: There is an external cast holding the wrist in volar flexion. A severely comminuted and impacted interarticular fracture of the distal radial metaphysis is seen. There is a coronal plane intra-articular component of the fracture which is somewhat diastatic, 4 mm. A sagittal plane component of the fracture is also seen at the articular margin of the distal radius. This is also somewhat diastatic, almost 4 mm. There is an ulnar styloid chip fracture. The distal ulna is otherwise intact. No carpal fracture is seen. There is slight widening of the navicular lunate interval. Impression: Comminuted impacted interarticular fracture of the distal radius. Ulnar styloid chip fracture. Mild widening of the navicular lunate interval. Electronically Signed by Riley Estrada MD 09/06/2018 11:11 A
[2018-09-06 14:00] VITALS: BP 125/72
[2018-09-06] MEDS: lamoTRIgine 100MG TAB PO SCH (20:57)
[2018-09-06] MEDS: QUEtiapine FUMARATE 200 MG TAB PO SCH (20:58)
[2018-09-06 21:48] VITALS: BP 145/84
[2018-09-07 06:00] VITALS: BP 111/45
--- NOTE | 2018-09-07 08:32 | IPN ---
DATE: 09/07/2018 Cyndie is seen on [address]. Really no change from yesterday. She had a CT of the wrist that showed adequate alignment of her fracture. Apparently, her is arriving on 09/08/2018. PHYSICAL EXAMINATION: Alert, conversant. Lungs: Clear. Heart: Regular rhythm. Abdomen: Soft, nontender. Both hands move well, normal sensation. IMPRESSION: Bilateral wrist fractures. Plan is to wait until her arrives. I guess he gets home on 09/08/2018 late in the evening, so she will be discharged on 09/09/2018.
[2018-09-07] MEDS: busPIRone 10 MG TAB PO SCH ×3 (08:57→20:50)
[2018-09-07] MEDS: MORPHINE 15 MG SA TAB PO SCH ×2 (08:58→20:50)
[2018-09-07] MEDS: PERCOCET 5MG/325MG TAB PO PRN ×3 (11:42→21:54)
[2018-09-07] MEDS: LIDOCAINE 4% CREAM 5GM (LMX4) TOP PRN (11:42)
[2018-09-07 14:00] VITALS: BP 131/77
[2018-09-07] MEDS: lamoTRIgine 100MG TAB PO SCH (20:51)
[2018-09-07] MEDS: QUEtiapine FUMARATE 200 MG TAB PO SCH (20:51)
[2018-09-07 22:00] VITALS: BP 126/76
[2018-09-08] MEDS: SENOKOT S TAB PO SCH ×2 (02:03→21:19)
[2018-09-08] MEDS: PERCOCET 5MG/325MG TAB PO PRN ×5 (02:05→22:51)
[2018-09-08 06:00] VITALS: BP 108/59
--- NOTE | 2018-09-08 08:45 | IPN ---
DATE: 09/08/2018 Patient is seen on [address]. Her apparently is flying in from [place] and will arrive around midnight tonight. She has two new issues: 1. She has had some increasing pain in her left mandible near the temporomandibular joint from her described fall, she says it hurts to open and close her jaw and would like an x-ray of this, she is also is having frequency, urgency, and dysuria, apparently has a history of recurrent urinary tract infections. She had an E. coli urinary tract infection (UTI) on 08/10/2018. PHYSICAL EXAMINATION: Afebrile. Vital signs stable. Lungs: Clear. Heart: Regular rhythm. Abdomen: Soft, nontender. Tender to palpate at the angle of the mandible on the left side over left temporomandibular joint. No CVA tenderness. IMPRESSION: 1. Jaw pain. Panorex ordered. 2. Dysuria. UA with culture ordered. 3. Wrist fractures. PLAN: Discharge tomorrow. Pain control looks adequate.
--- NOTE | 2018-09-08 08:57 | CR ---
DATE OF CONSULTATION: 09/03/2018 CHIEF COMPLAINT: Bilateral wrist pain. HISTORY OF PRESENT ILLNESS: This is a 28-year-old female who is status post a fall down the stairs at home. Patient fell down approximately 12 stairs. She had pain in her bilateral wrists. In the emergency room radiographs were performed which demonstrated bilateral wrist fractures. PAST MEDICAL HISTORY: Depression and anxiety. PAST SURGICAL HISTORY: Left ankle surgery. HOME MEDICATIONS: None. ALLERGIES: PENICILLIN, ERYTHROMYCIN, and TRAZODONE. SOCIAL HISTORY: Does not use alcohol or tobacco. No drug abuse. He is and her is currently deployed. He will be coming home soon. PHYSICAL EXAMINATION: GENERAL: Well appearing, alert and oriented in no acute distress. CARDIOVASCULAR: Regular rate and rhythm. LUNGS: Clear to auscultation bilaterally. ABDOMEN: Soft, nontender. EXTREMITIES: In the bilateral upper extremities patient is neurovascularly intact. She has normal sensation to light touch in the medial ulnar and radial nerve distribution. She has palpable radial pulses. Skin is intact. There is an obvious deformity on the left. There is no deformity on the right. She is able to flex and extend her fingers including her EPL bilaterally without difficulty. IMAGING: Radiographs are reviewed and show a nondisplaced distal radius fracture on the right and a comminuted displaced distal radius fracture on the left. IMPRESSION: Bilateral wrist fractures. PLAN: After consent was obtained closed reduction was performed for the left wrist fracture. I was able to get the fracture appropriately aligned using the C-arm in the emergency room, however, there was some displacement after placement of the cast as the patient was not tolerating the cast placement due to pain. CT scan was performed and shows a significantly comminuted distal radius fracture. Alignment is improved from her initial radiographs, however, I do suggest that she meets with a hand specialist given her young age about possible open reduction and internal fixation. As she will be getting discharged from the hospital on September 09 and her will be home at that point and would be able to drive her to [place] so we will try to get something set up for her. Patient has been admitted to the medicine service and will be under the care until discharge.
[2018-09-08] MEDS: busPIRone 10 MG TAB PO SCH ×3 (09:39→21:18)
[2018-09-08] MEDS: MORPHINE 15 MG SA TAB PO SCH (09:39)
[2018-09-08] MEDS: MIRALAX *UNIT DOSE* 17GM PACKET PO SCH (09:40)
--- NOTE | 2018-09-08 10:00 | REP ---
PANOREX MANDIBLE: HISTORY: Left mandibular pain. FINDINGS: There are carious mandibular teeth bilaterally. No bony destructive lesion is seen in the mandible. Mandibular condyles are intact. There is no evidence of malocclusion. IMPRESSION: Carious mandibular teeth bilaterally. Otherwise negative. Electronically Signed by Riley Estrada MD 09/08/2018 10:44 A
[2018-09-08] MEDS ORDERED: PERCOCET PO (13:38)
[2018-09-08] MEDS ORDERED: BACITRACIN OINT 30GM TOP PRN (13:45)
[2018-09-08] MEDS: lamoTRIgine 100MG TAB PO SCH (21:19)
[2018-09-08] MEDS: NITROFURANTOIN (MACROBID) 100 MG CAP PO SCH (21:19)
[2018-09-08 22:00] VITALS: BP 125/53
[2018-09-08] MEDS: QUEtiapine FUMARATE 200 MG TAB PO SCH (22:50)
[2018-09-09 06:00] VITALS: BP 109/53
[2018-09-09] MEDS ORDERED: MACR100C43 PO (07:05)
[2018-09-09] MEDS: NITROFURANTOIN (MACROBID) 100 MG CAP PO SCH (07:30)
[2018-09-09] MEDS: busPIRone 10 MG TAB PO SCH (07:30)
[2018-09-09] MEDS: PERCOCET 5MG/325MG TAB PO PRN (07:31)
[2018-09-09] MEDS: MIRALAX *UNIT DOSE* 17GM PACKET PO SCH (08:02)
--- NOTE | 2018-09-09 11:01 | IPN ---
DATE: 09/09/2018 Cyndie was actually discharged yesterday and expected that she was going to get picked up this morning. But she was still there when I went in to round. I started her on Macrodantin 100 mg twice a day yesterday for presumed cystitis with a pending urine culture (prescription for Macrobid 100 mg twice a day sent to her pharmacy before discharge). As noted above, I expect the patient will be discharged before rounds, however, she says that because the hospital's WiFi was down, she could not reach any of her friends to come pick her up. So I directed this to [facility] to address. Patient was medically stable for discharge last night.
--- NOTE | 2018-09-13 19:52 | DSES ---
DATE OF ADMISSION: 09/03/2018 DATE OF DISCHARGE: 09/09/2018 PRIMARY CARE PROVIDER: Leni Doshi INTEGRATION LEAD: [facility]/Dr. Jackson PRINCIPAL DIAGNOSIS: Bilateral wrist fractures. HISTORY: Cyndie Osborne said she fell down stairs and fractured both wrists. Details of history are available from admission. HOSPITAL COURSE: She was admitted to the medical service, the hospitalist, she essentially was pain control and supportive care for the duration of her hospitalization. She was seen by orthopedics, had closed reduction bilaterally. She developed some dysuria during her hospitalization. Has a history of recurrent urinary tract infections (UTIs). I put her on Macrodantin the day of discharge. She probably could have been discharged a few days before she went home, but [place] , who is , was [place]. He returned home on the evening of 09/08/2018, so she went home on 09/09/2018. DISPOSITION: She was discharged home in stable condition. She is following up with her primary care provider (PCP) at [place]. Activity as tolerated and diet as tolerated. Medicines were Macrobid one twice a day for 5 days, oxycodone 5/325 every 6 hours as needed (12 tablets) with appropriate precautions. She was continued on alprazolam 0.5 mg four times a day as needed (warned of sedative interaction with the oxycodone, which she did tolerate in the hospital), BuSpar 10 m three times a day, Lamictal 300 mg at bedtime, Seroquel 400 mg at bedtime. She was going to followup at the orthopedic group for fracture and care of the cast. At the time of dictation, there were no pending labs.
== END 2018-09-09 09:10 | disposition home or self-care (01) | DRG 563 ==
LOC: M ED 01:06 → M ED INP 07:34 → M MS5PR 13:19
PROVIDERS: ADMIT Hospitalist; ATTEND Family Medicine
PROC: 0PSJXZZ Reposition Left Radius, External Approach (ICD-10-PCS; principal; 2018-09-03)
DX: S52.572A Other intraarticular fracture of lower end of left radius, initial encounter for closed fracture (principal); S52.571A Other intraarticular fracture of lower end of right radius, initial encounter for closed fracture; W10.8XXA Fall (on) (from) other stairs and steps, initial encounter; S52.612A Displaced fracture of left ulna styloid process, initial encounter for closed fracture; Y92.89 Other specified places as the place of occurrence of the external cause; F31.9 Bipolar disorder, unspecified; R68.84 Jaw pain; R30.0 Dysuria; F41.9 Anxiety disorder, unspecified; Z88.0 Allergy status to penicillin; Z88.1 Allergy status to other antibiotic agents; Z88.8 Allergy status to other drugs, medicaments and biological substances